=== PATIENT | female | born 1955 | race Caucasian/White ===

== ENCOUNTER → 2019-01-05 10:31 | Outpatient (CLI) | payer BC ==
[2010-02-16 09:51] VITALS: BMI 45.6
--- NOTE | ~2019-01-05 | ST ---
PATIENT:REMINGTON CH MEDICAL RECORD: [id number] SEX: F LOCATION:[facility] ORDER #: ADMISSION DATE: 01/05/19 AGE OF PATIENT: 63 REFERRING PHYSICIAN: INTERPRETING PHYSICIAN: DIONI HILLIARD MD DATE OF SERVICE: 01/05/2019 Nuclear Stress Test INDICATIONS: Angina, shortness of breath, hypertension. She was exercised on standard Lexiscan protocol with 27 mCi of sestamibi injected at peak stress, 9 mCi used previously for rest images. FINDINGS: Gated SPECT reveals preserved ejection fraction at 75% with good wall motioning and thickening and brightening throughout all segments. SPECT IMAGING: Cardiolite was used as myocardial fusion agent. There are reversible changes anteriorly and apically. The degree of reversibility is moderate. The amount of myocardium involved is moderate. OVERALL IMPRESSION: This is an abnormal nuclear stress test with moderate degree of reversibility anteriorly and apically with preserved ejection fraction 75%. Due to the moderate amount of myocardium involved and in fact it is anterior and apically, this is a moderate to high risk scan. Would proceed with coronary angiography as followup study. TRANSINT:[id number] Voice Confirmation ID: [id number] DOCUMENT ID: [id number] DIONI HILLIARD MD CC: [id number] DICTATION DATE: 01/06/19 1137 PLUMBER ASSISTANT: 01/06/19 2347 DEP CLI 01/05/19 [facility] [address] [place] [address]
[~2019-01-05 10:31] MED LIST: ATIVAN0.5 MG PO; BAYER CHEWABLE81 MG PO; DIFLUCAN150 MG; FUROSEMIDE20 MG PO; HYDRALAZINE HCL25 MG; HYDROXYZINE HCL50 MG PO; NORVASC10 MG PO; PLAVIX75 MG PO; PREDNISONE20 MG PO; ULTRAM50 MG PO
--- NOTE | 2019-01-06 14:00 | EC ---
PATIENT:REMINGTON CH DATE OF SERVICE: 01/05/19 SEX: F MEDICAL RECORD: [id number] DATE OF : 57 LOCATION:[facility] AGE OF PATIENT: 63 ADMISSION DATE: 01/05/19 REFERRING PHYSICIAN: INTERPRETING PHYSICIAN: AMILCAR THOMAS MD ECHOCARDIOGRAM REPORT ECHO CHARGES 4 ECHO COMPLETE Date: 01/05/19 CLINICAL DIAGNOSIS: DYSPNEA ECHOCARDIOGRAPHIC MEASUREMENTS (adult normal given) AC root (d.<3.7cm) 3.1 cm LV Septum d (<1.2 cm> 1.7 cm Valve Excursion 1.7 cm LV Septum (systole) 2.0 cm Left Atria (s.<4.0cm> 4.5 cm LVPW d(<1.2cm) 1.7 cm RV (d.<2.3cm) 3.2 cm LVPW (sytole) 2.0 cm LV diastole(<5.6CM) 4.4 cm MV E-F(>70mm/sec) cm LV systole 3.0 cm LVOT Diameter 1.9 cm MV exc.(>10mm) 1.7 cm Est.ejection fraction (50-75%) % DOPPLER: LVIT cm/sec A 81.0 cm/sec E 49.0 cm/sec LA cm/sec RVSP 19 mmHg LVOT 101 cm/sec AOP1/2T m/s Asc. Ao 171 cm/sec RVOT 134 cm/sec RA cm/sec PA 164 cm/sec AV Gradient Peak 11.72mmHg AV Mean 6.26 mmHg AV Area 1.9 cm MV Gradient Peak 4.63 mmHg MV Mean 1.21 mmHg MV Area cm COMMENTS: Anatomical Embalmer: 2 JOSUÉ LUGO Custom Studio Coordinator: 3 Dr. Ordaz TAPE# PACS Pericardial Effusion N DATE OF SERVICE: 01/05/2019 Adequate 2-D echo, color-flow and spectral Doppler, and M-mode. LVH is present. LV internal dimensions are normal. Wall motion is normal. EF is 55%. Aortic valve sclerosis without stenosis by Doppler interrogation. Left atrium is dilated at 4.5 cm. Mitral valve shows no prolapse. Trace MR. Right-sided chambers are grossly normal. Trace TR. TRANSINT:[id number] Voice Confirmation ID: [id number] DOCUMENT ID: [id number] ECHOCARDIOGRAM REPORT [id number] REMINGTON CH,AMILCAR Martino MD at 1400 CC: [id number] DICTATION DATE: 01/06/19 1301 ORCHID HAND: 01/06/19 1358 DEP CLI 01/05/19 [place] [id number] [place] [address]
== END | disposition home or self-care (01) ==
LOC: D.HCCARDIO 10:31
PROVIDERS: ATTEND Internal Medicine Interventional Cardiology
DX: I20.9 Angina pectoris, unspecified (principal); R06.02 Shortness of breath

== ENCOUNTER 2019-01-13 09:06 | Outpatient (CLI) | payer BC ==
--- NOTE | ~2019-01-13 | HEMODYNAMI ---
PATIENT:REMINGTON CH MEDICAL RECORD: [id number] : 57 LOCATION:[facility] ADMISSION DATE: 01/13/19 Generatedon:01/13/201911:04 Patient name: REMINGTON CH Patient #: [id number] SSN: : 1955 Date of study: 01/13/2019 Page: Of Hemodynamic Procedure Report Patient Data Patient Demographics Procedure consent was obtained First Name: REMINGTON Gender: Female Last Name: DIMA : 1955 [facility] Initial: SHERLYN Age: 63 year(s) Patient #: [id number] Race: Unknown Additional ID: [id number] Contact details [address]: [address] [place] [address] State: [place] City: [place] Zip code: [address] Past Medical History Allergies Allergen Reaction Date Comments Reported Iodine Anaphylaxis->Anaphylactic 01/13/2019 Shock Admission Admission Data Admission Date: 01/13/2019 Admission Time: 9:06 Procedure Procedure Types Cath Procedure Diagnostic Procedure [facility] w/Coronaries Sedation Charges Moderate Sedation up to 15 minutes PCI Procedure Coronary Stent Coronary Stent Initial Procedure Description Procedure Date Procedure Date: 01/13/2019 Procedure Start Time: 10:48 Procedure End Time: 11:04 Procedure Staff Name Function Frederick Lynn MD Performing Physician Belem Newell RT Monitor Kristi Ravi RN Nurse Jyoti Wood RT Scrub [place] CRNA Additional personnel Procedure Data Cath Procedure Fluoroscopy Diagnostic fluoroscopy Total fluoroscopy Time: 2.5 time: 2.5 min min Diagnostic fluoroscopy Total fluoroscopy dose: 871 dose: 871 mGy mGy Contrast Material Contrast Material Type Amount (ml) Isovue 370 72 Entry Location Entry Primary Successful Side Size Upsize Upsize Entry Closure Bailey ccessful Closure Location (Fr) 1 (Fr) 2 (Fr) Remarks Device Remarks Radial Right 6 Fr Mechanical artery Short Compression Estimated blood loss: 10 ml Diagnostic catheters Device Type Used For End Catheter Placement DIAGNOSTIC Beau[place] 110cm 5 LV Angiography Fr catheter ([id number]) DIAGNOSTIC [place] 110cm 5 Left Coronary Fr catheter ([id number]) Angiography DIAGNOSTIC [place] 110cm 5 Right Coronary Fr catheter ([id number]) Angiography Procedure Complications No complications Procedure Medications Medication Administration Route Dosage Oxygen etCO2 Nasal cannula 2 l/min Lidocaine 2% added to field 20 Heparin Flush Bag added to field 2 bags (1000units/500ml NS) 0.9% NaCl I.V. 100 ml/hr Radial Cocktail I.A. 1 syringe (Verapamil 2mg/Nitro 400mcg/Heparin 1500units) Versed I.V. 2 mg Fentanyl I.V. 50 mcg Heparin Bolus I.V. 4000 units Integrilin (Bolus I.V. 11.3 ml 2mg/ml) Versed I.V. 2 mg Fentanyl I.V. 50 mcg Plavix P.O. 600 mg Hemodynamics Rest Heart Rate: 70 (bpm) Snapshots Pre Cath Intra NCS Post Cath Vital Signs Time Heart Resp SPO2 etCO2 NIBP (mmHg) Rhythm Pain Sedation Rate (ipm) (%) (mmHg) Status Level (bpm) 10:38:29 68 16 98 34.3 126/71(92) NSR 0 (11) 10(A) , No pain 10:43:30 70 23 99 31.3 160/93(122) NSR 0 (11) 10(A) , No pain 10:47:46 68 16 97 26.1 156/90(122) NSR 0 (11) 10(A) , No pain 10:52:02 75 21 94 32.8 146/85(103) NSR 0 (11) 10(A) , No pain 10:56:18 75 20 94 34.3 147/83(118) NSR 0 (11) 10(A) , No pain 11:00:30 73 23 97 33.6 149/87(121) NSR 0 (11) 10(A) , No pain Medications Time Medication Route Dose Verified Delivered Reason Not es Effectiveness by by 10:40:01 Lidocaine 2% added 20ml Frederick Arndtie for local to vial Leah Ravi RN anesthetic field 10:40:07 Heparin Flush added 2 bags Frederick Mack used for Bag to Leah Lynn MD procedure (1000units/500ml field NS) 10:40:17 0.9% NaCl I.V. 100 Frederick Buffie Per physician ml/hr Leah Ravi RN 10:40:55 Oxygen etCO2 2 l/min Frederick Berry used for Nasal Leah Ravi RN procedure cannula 10:42:03 Fentanyl I.V. 50 mcg Frederick Berry for sedation Leah Ravi RN 10:42:57 Versed I.V. 2 mg Frederick Berry for sedation Leah Ravi RN 10:47:12 Versed I.V. 2 mg Frederick Berry for sedation Leah Ravi RN 10:47:16 Fentanyl I.V. 50 mcg Frederick Berry for sedation Leah Ravi RN 10:47:26 Radial Cocktail I.A. 1 Frederick serrano (Verapamil syringe Leah Lynn MD vasodilation 2mg/Nitro 400mcg/Heparin 1500units) 10:55:34 Heparin Bolus I.V. 4000 Frederick Berry for aaron ified units Leah Ravi RN anticoagulation with dr lynn 10:59:42 Integrilin I.V. 11.3 ml Frederick serrano Was brenna (Bolus 2mg/ml) Leah Ravi RN antiplatelet 8.7 ml therapy of vial 11:02:36 Plavix P.O. 600 mg Frederick Ravi RN antiplatelet therapy Procedure Log Time Note 10:17:47 Kristi Ravi RN sent for patient. Start room use. 10:17:48 Time tracking: Regular hours (M-F 7:00 - 5:00) 10:17:53 Plan of Care:Hemodynamics will remain stable., Cardiac rhythm will remain stable., Comfort level will be maintained., Respiratory function will remain adequate., Patient/ family verbilizes understanding of procedure., Procedure tolerated without complication., Recovers from procedure without complications.. 10:23:56 Patient received from Pre/Post Procedure Room to CCL 2 Alert and oriented. Tansferred to table in Supine position. 10:23:57 Warm blankets applied, and rigo hugger turned on for patient comfort. 10:23:58 Correct patient and procedure confirmed by team. 10:23:59 Signed procedure consent form obtained from patient. 10:24:00 ECG and BP/O2 sat monitors applied to patient. 10:24:01 Full Disclosure recording started 10:37:07 Vital chart was started 10:37:10 Rhythm: sinus rhythm 10:38:30 LOLLY ROCK CRNA PRESENT FOR POSSIBLE ANAPHAXIS REACTION DUE TO SEVERE IODINE ALLERGY. 10:38:49 H&P Date Dictated: 12/25/2018 Within 30 days and on chart., H&P Addendum completed by physician on day of procedure. (MUST COMPLETE FOR ALL OUTPATIENTS). 10:38:51 Pre-procedure instructions explained to patient. 10:38:51 Pre-op teaching completed and patient verbalized understanding. 10:38:54 Family in patients room. 10:38:55 Patient NPO since Midnight. 10:39:17 Patient allergic to Iodine 10:39:20 Is the patient allergic to Iodine/contrast media? Yes. 10:39:21 Was the patient premedicated? Yes 10:39:22 Is patient on blood thinner?No 10:39:24 Patient diabetic? No. 10:39:26 Previous problem with sedation/anesthesia? No ? 10:39:27 Snore? Yes 10:39:28 Sleep apnea? No 10:39:29 Deviated septum? No 10:39:30 Opens mouth fully? Yes 10:39:30 Sticks out tongue? Yes 10:39:34 Airway obstruction? No ? 10:39:36 Dentures? Yes IN 10:39:39 Pre procedure: right dorsailis pedis pulse 2+ Normal; easily identifiable; not easily obliterated 10:39:41 Modified [facility]'s test Ulnar < 7 seconds 10:39:43 Patient pain scale 0/10 ?. 10:39:52 IV patent on arrival in left antecubital with 0.9% NaCl at KVO. 10:39:54 Lab results completed and on chart. 10:39:57 Right Radial & Right Groin area was prepped with chlora-prep and draped in sterile fashion 10:39:58 Alarms reviewed by R. N. 10:39:58 Sharps counted by scrub and verified by R.N. 10:40:01 Lidocaine 2% 20ml vial added to field was administered by Kristi Ravi RN; for local anesthetic; 10:40:01 Use device set Radial Dx or PCI 10:40:02 ACIST Syringe (05417) opened to sterile field. 10:40:02 Medline Cath Pack ([id number]) opened to sterile field. 10:40:03 Bag Decanter (2002S) opened to sterile field. 10:40:03 DIAGNOSTIC WIRE .035 260cm J wire (352200) opened to sterile field. 10:40:04 ACIST Hand Control (67290) opened to sterile field. 10:40:05 ACIST Manifold (58682) opened to sterile field. 10:40:05 Tegaderm 4 x 4 (1626W) opened to sterile field. 10:40:06 MBrace Wrist Support ([id number]) opened to sterile field. 10:40:07 Heparin Flush Bag (1000units/500ml NS) 2 bags added to field was administered by Frederick Lynn MD; used for procedure; 10:40:07 SHEATH 6FR Slender (13-2460) opened to sterile field. 10:40:17 0.9% NaCl 100 ml/hr I.V. was administered by Kristi Ravi RN; Per physician; 10:40:52 Final Timeout: patient, procedure, and site verified with staff and physician. All members of the team are in agreement. 10:40:53 Right Radial site verified by team. 10:40:55 Oxygen 2 l/min etCO2 Nasal cannula was administered by Kristi Ravi RN; used for procedure; 10:40:58 Maximum allowable Isovue 370 dose 300ml. Physician notified. (300ml for normal creatinines. For patients with creatinine of 1.7 or higher multiply weight(kg) x 5 divided by creatinine.) 10:41:01 Fire Safety Assessment: A--An alcohol-based skin anteseptic being used preoperatively., C--Open oxygen or nitrous oxide is being used., D--An ESU, laser, or fiber-optic light is being used. 10:41:09 Physical assessment completed. ASA score P 3 - A patient with severe systemic disease as per Frederick Lynn MD. 10:41:12 Sedation plan: IV Moderate Sedation Medication:Versed, Fentanyl 10:42:03 Fentanyl 50 mcg I.V. was administered by Kristi Ravi RN; for sedation; 10:42:57 Versed 2 mg I.V. was administered by Kristi Ravi RN; for sedation; 10:43:56 Baseline sample Acquired. 10:47:12 Versed 2 mg I.V. was administered by Kristi Ravi RN; for sedation; 10:47:16 Fentanyl 50 mcg I.V. was administered by Kristi Ravi RN; for sedation; 10:47:26 Radial Cocktail (Verapamil 2mg/Nitro 400mcg/Heparin 1500units) 1 syringe I.A. was administered by Frederick Lynn MD; for vasodilation; 10:48:33 Procedure started. 10:48:40 Local anesthetic to right radial artery with Lidocaine 2% by Frederick Lynn MD.INITIAL ACCESS ONLY 10:49:02 A 6 Fr Short sheath was inserted into the Right Radial artery 10:49:55 A DIAGNOSTIC Beau[place] 110cm 5 Fr catheter (718204) was advanced over the wire and used for LV Angiography. 10:50:48 LV gram done using HUNT 10:50:51 Injector settings: Ml/sec: 5, Volume: 15, 10:51:28 A DIAGNOSTIC [place] 110cm 5 Fr catheter (555007) was advanced over the wire and used for Left Coronary Angiography. 10:52:16 A DIAGNOSTIC [place] 110cm 5 Fr catheter (111874) was advanced over the wire and used for Right Coronary Angiography. 10:53:37 6 Fr XBLAD 3.5 guide catheter was inserted over the wire 10:53:46 Use device set [facility] PCI 10:53:50 INFLATOR Merit BasixCompak (CE1370) opened to sterile field. 10:53:53 GUIDE 6FR XBLAD 3.5 catheter ([id number]) opened to sterile field. 10:55:25 iFR wire advanced. 10:55:34 Heparin Bolus 4000 units I.V. was administered by Kristi Ravi RN; for anticoagulation; verified with dr lynn 10:57:19 Place stent Inflation Number: 1 A COBRA RX 3.0 X 15 Stent was prepped and advanced across the Mid LAD. The stent was deployed at 17 MAMADOU for 0:04 (min:sec). 10:57:39 Stent catheter was removed intact over wire. 10:57:40 Wire removed. 10:57:41 Guide catheter removed. 10:57:49 Sheath removed intact; hemostasis achieved with Mechanical Compression to the Right Radial artery. 10:57:51 Procedure ended.(Physican Out) 10:58:02 Fluoroscopy time 02.50 minutes. 10:58:10 Fluoroscopy dose: 871 mGy 10:58:10 Flurop Dose total: 871 10:58:14 Contrast amount:Isovue 370 72ml. 10:58:17 Sharps counted by scrub and verified by R.N. 10:58:19 TR band inflated with 13cc of air. 10:58:27 TR BAND Large ([id number]) opened to sterile field. 10:59:42 Integrilin (Bolus 2mg/ml) 11.3 ml I.V. was administered by Kristi Ravi RN; for antiplatelet therapy; Wasted 8.7 ml of vial 10:59:54 Insertion/operative site no bleeding no hematoma. 11:00:22 Post right radial artery:stable, clean and dry 11:00:23 Post Procedure Pulses reassessed and unchanged 11:00:26 Post-procedure physical assessment completed. ASA score P 3 - A patient with severe systemic disease as per Frederick Lynn MD. 11:00:40 Post procedure rhythm: unchanged. 11:00:45 Estimated blood loss: 10 ml 11:00:46 Post procedure instruction explained to patient.Patient verbalizes understanding. 11:00:47 Patient needs reinforcement of post procedure teaching. 11:00:51 Procedure Complication : No complications 11:00:53 See physician's report for complete and final results. 11:02:03 Procedure type changed to Cath procedure, Diagnostic procedure, LHC, LHC w/Coronaries, Sedation Charges, Moderate Sedation up to 15 minutes, PCI procedure, Coronary Stent, Coronary Stent Initial 11:02:36 Plavix 600 mg P.O. was administered by Kristi Ravi RN; for antiplatelet therapy; 11:03:32 [place] Verrata Plus pressure wire (25968J) opened to sterile field. 11:03:47 Procedure and supply charges have been captured, reviewed, submitted and are correct. 11:03:52 Report given to Pre/Post Procedure Room. 11:03:55 Patient transfered to Pre/Post Procedure Room with Stretcher. 11:04:01 Procedure ended. 11:04:01 Full Disclosure recording stopped 11:04:04 End room use (Document Last) 11:04:31 Vital chart was stopped Intervention Summary Intervention Notes Time ActionType Lesion and Equipment Action# Pressure Duration Attributes Used 10:57:19 Place stent Mid LAD COBRA RX 1 17 00:04 3.0 X 15 Stent Device Usage Item Name Manufacture Quantity Catalog Hospital Part Current Minimal Lot# / Number Charge Number Stock Stock Serial# Code ACIST Syringe Acist 1 16771 521129 900420 577679 20 (32031) Medical Systems Inc Medline Cath Medline 1 [id number] 391881 80511 629744 5 Pack ([id number]) Bag Decanter Microtek 1 2001S 722969 64780 583224 5 (2001S) Medical Inc. DIAGNOSTIC St Alex 1 000525 536082 057712 338805 30 WIRE .035 260cm J wire (351947) ACIST Hand Acist 1 56412 069654 480459 263743 5 Control Medical (97937) Systems Inc ACIST Manifold Acist 1 40327 236777 430526 862776 5 (98825) Medical Systems Inc Tegaderm 4 x 4 3M 1 1626W 823047 782317 964368 5 (1626W) MBrace Wrist Advanced 1 140-0250-00 082540 38586 829143 5 Support Vascular (082963422) Dynamics SHEATH 6FR Terumo 1 [id number] 514630 483198 477573 5 Slender (80-1060) DIAGNOSTIC Terumo 1 40-5013 634448 968984 359825 5 Beau[place] 110cm 5 Fr catheter (317765) INFLATOR Merit Merit 1 [id number] 243022 696113 449488 15 Comm[facility]ixCache [facility] HospitalFinalta Medical (GP2713) GUIDE 6FR Cardinal 1 [id number] 608323 187672 222741 10 XBLAD 3.5 Health catheter (21528229) COBRA RX 3.0 X Celonova 1 107-78-87026 604679 [id number] 608721 1 [id number] 15 stent Biosciences (111-46-11536) TR BAND Large Terumo 1 [id number] 293309 106580 150160 40 ([id number]) [place] Plainville 1 06867R 931207 [id number] 794795 5 Verrata Plus pressure wire (91202E) Signature Audit [place] Stage Time Signature Unsigned Intra-Procedure 01/13/2019 Jyoti 11:04:26 AM Counts RT(R) Signatures Monitor : Belem Newell Signature : RT Date : Time : [facility] [address] [place] [address]
[2019-01-13] MEDS ORDERED: ULTRAM50 MG PO (09:35)
[2019-01-13] MEDS ORDERED: HYDROXYZINE HCL50 MG PO (09:35)
[2019-01-13] MEDS ORDERED: PREDNISONE20 MG PO (09:35)
[2019-01-13] MEDS ORDERED: FUROSEMIDE20 MG PO (09:36)
[2019-01-13] MEDS ORDERED: ATIVAN0.5 MG PO (09:36)
[2019-01-13] MEDS ORDERED: HYDRALAZINE HCL25 MG (09:36)
[2019-01-13] MEDS ORDERED: DIFLUCAN150 MG (09:37)
[2019-01-13] MEDS ORDERED: NORVASC10 MG PO (09:38)
[2019-01-13 09:42] VITALS: BP 170/88; BMI 46.9
[2019-01-13 09:59] LABS: HEMATOCRIT 45.8 % (36.0-48.0); HEMOGLOBIN 15.2 g/dL (12-16); MCH 28.8 pg (26.0-34.0); MCHC 33.2 g/dL (31.0-37.0); MCV 86.7 fL (80.0-100.0); MEAN PLATELET VOLUME 9.3 fL (7.4-10.4); NEUTROPHILS 76.1 % (40-80); RBC 5.28 10x6/uL (4.00-5.40); RDW 14.8 % (11.5-14.5); WBC 8.9 10x3/uL (4.8-10.8)
[2019-01-13 10:11] LABS: CALCIUM 9.6 mg/dL (8.5-10.1); CREATININE - SERUM 1.3 mg/dL (0.6-1.3)
[2019-01-13 10:15] LABS: PLATELET COUNT 230 10x3/uL (130-400)
--- NOTE | 2019-01-13 11:12 | NUR ---
PT ARRIVED BY STRETCHER. PLACED ON MONITORS. ASSESSMENT COMPLETED. VSS. RIGHT WRIST TR BAND IN PLACE. NO BLEEDING/HEMATOMA NOTED. FAMILY AT BEDSIDE.
[2019-01-13] MEDS ORDERED: BAYER CHEWABLE81 MG PO (11:22)
[2019-01-13] MEDS ORDERED: PLAVIX75 MG PO (11:22)
--- NOTE | 2019-01-13 11:30 | NUR ---
DR. HILLIARD ROUNDED AND SPOKE WITH PT AND PT'S FAMILY. THEY VOICED UNDERSTANDING. PT AWAKE AND ALERT. RIGHT RADIAL TR BAND IN PLACE. NO BLEEDING/HEMATOMA NOTED. PT'S HEAD OF BED AT 30 DEGREES. SET UP WITH SANDWICH TRAY AND COFFEE PER REQUEST. DENIES NAUSEA AND PAIN.
--- NOTE | 2019-01-13 12:00 | NUR ---
PT SITTING UP VISITING WITH FAMILY. NO NEEDS AT THIS TIME. RIGHT RADIAL TR BAND IN PLACE. NO BLEEDING/HEMATOMA NOTED. VSS.
--- NOTE | 2019-01-13 12:30 | NUR ---
VSS. RIGHT RADIAL TR BAND IN PLACE. NO BLEEDING/HEMATOMA NOTED. PT RESTING COMFORTABLY. DENIES NAUSEA/PAIN.
--- NOTE | 2019-01-13 13:30 | NUR ---
RIGHT RADIAL TR BAND IN PLACE. NO BLEEDING/HEMATOMA NOTED. VSS. PT RESTING COMFORTABLY. PT DENIES NAUSEA, PAIN, OR ITCHING AT THIS TIME.
--- NOTE | 2019-01-13 14:00 | NUR ---
4cc OF AIR REMOVED FROM TR BAND. PT TOLERATED WELL. NO BLEEDING/HEMATOMA NOTED. VSS. PT DENIES ITCHING, PAIN, OR NAUSEA AT THIS TIME. FAMILY AT BEDSIDE. CALL LIGHT WITHIN REACH. WILL CONTINUE TO MONITOR.
--- NOTE | 2019-01-13 14:15 | NUR ---
3cc OF AIR REMOVED FROM TR BAND. PT TOLERATED WELL. VSS. NO BLEEDING/HEMATOMA NOTED.
--- NOTE | 2019-01-13 14:30 | NUR ---
LEFT AC PIV D/C'D WITH CATH TIP INTACT. PT TOLERATED WELL. VSS. 2cc OF AIR REMOVED FROM TR BAND. NO BLEEDING/HEMATOMA NOTED. PT INSTRUCTED TO GET UP AND DRESSED. FAMILY AT BEDSIDE FOR ASSIST.
--- NOTE | 2019-01-13 14:40 | NUR ---
PT DRESSED. AMBULATED TO RESTROOM. VOIDED WITHOUT DIFFICULTY. STEADY GAIT NOTED.
--- NOTE | 2019-01-13 14:45 | NUR ---
RIGHT RADIAL TR BAND REMOVED. NO BLEEDING/HEMATOMA NOTED. DRESSING APPLIED. RIGHT WRIST BRACE APPLIED AND PT INSTRUCTED TO KEEP ON FOR 2 HOURS ONCE SHE ARRIVED HOME. SHE VOICED UNDERSTANDING. DISCUSSED DISCHARGE INSTRUCTIONS WITH PT AND PT'S FAMILY. THEY VOICED UNDERSTANDING.
--- NOTE | 2019-01-13 15:00 | NUR ---
RIGHT WRIST DRESSING C/D/I. NO S/S OF HEMATOMA NOTED. PT TAKEN OUT TO VEHICLE BY WHEELCHAIR. NO S/S OF DISTRESS NOTED. ALL BELONGINGS AND PAPERWORK IN HAND.
--- NOTE | 2019-01-16 11:28 | OP ---
PATIENT NAME: REMINGTON CH MEDICAL RECORD: [id number] :57 LOCATION:D.[facility] ADMISSION DATE: SURGEON: DIONI HILLIARD MD DATE OF OPERATION: 01/13/2019 PROCEDURES: 1. PTCA stent LAD. 2. Left heart catheterization. 3. Selective coronary angiography. 4. Left ventriculogram. INDICATION: Angina, abnormal nuclear stress test, anteroapical reversibility. PROCEDURE IN DETAIL: After informed consent was obtained and after a detailed description of risks, benefits as well as alternative therapies, the patient elected to proceed with angiogram and angioplasty. The right radial area was prepped and draped in normal sterile fashion. Right radial artery was cannulated via modified Seldinger technique with placement of 6-Hebrew sheath. All catheters exchanged through this sheath. FINDINGS: The left ventriculogram was performed in standard 30-degree HUNT view, reveals good cardiac wall motion throughout all segments. Overall ejection fraction estimated 60%. SELECTIVE CORONARY ANGIOGRAPHY: 1. Left main is with no significant angiographic disease. 2. Left anterior descending has 75% stenosis mid vessel. This correlates reversible perfusion defect on nuclear stress testing. 3. Left circumflex has moderate irregularities, but no flow-limiting stenosis. 4. Right coronary artery has moderate irregularities, but no flow-limiting stenosis. PTCA STENT OF THE LAD: The stent used was a 3.0 x 15 mm Cobra. Result was 0% residual stenosis. OVERALL IMPRESSION: Successful percutaneous transluminal coronary angioplasty stent of the left anterior descending going from 75% initial stenosis to 0% residual. TRANSINT:[id number] Voice Confirmation ID: [id number] DOCUMENT ID: [id number] DIONI HILLIARD MD at 1128 CC: [id number] DICTATION DATE: 01/13/19 1102 ECOMMERCE MARKETING MANAGER: 01/13/19 1321 DEP CLI 01/13/19 [place] [address]
== END 2019-01-13 15:00 | disposition home or self-care (01) ==
LOC: D.CATH 09:06
PROVIDERS: ATTEND Internal Medicine Interventional Cardiology
DX: I20.9 Angina pectoris, unspecified (principal); R94.30 Abnormal result of cardiovascular function study, unspecified; R06.02 Shortness of breath

== ENCOUNTER → 2020-12-01 12:59 | Outpatient (CLI) | payer BC ==
[2020-12-01 13:46] LABS: AMYLASE - SERUM 31 U/L (25-115); LIPASE 73 U/L (73-393)
== END | disposition home or self-care (01) ==
LOC: D.NM 12:59
PROVIDERS: ATTEND Internal Medicine Gastroenterology
DX: R10.84 Generalized abdominal pain (principal); R11.2 Nausea with vomiting, unspecified; R14.0 Abdominal distension (gaseous); R10.13 Epigastric pain; R11.0 Nausea

== ENCOUNTER → 2020-12-06 12:46 | Outpatient (CLI) | payer BC | END | disposition home or self-care (01) | LOC: D.US 12:46 | PROVIDERS: ATTEND Internal Medicine Gastroenterology | DX: R11.10 Vomiting, unspecified (principal); R10.13 Epigastric pain; R63.4 Abnormal weight loss ==